=== PATIENT | female | born 1970 | race Caucasian/White ===

== ENCOUNTER 2021-06-17 13:36 | Outpatient (CLI) | payer BC, SELFPAY ==
--- NOTE | 2021-06-17 13:30 | ECG_ITS ---
Measurements Intervals [place] Rate: 65 P: 47 ME: 145 QRS: 25 QRSD: 97 T: 59 QT: 405 QTc: 422 Interpretive Statements SINUS RHYTHM BORDERLINE R WAVE PROGRESSION, ANTERIOR LEADS BASELINE ARTIFACT- I, II, III, AVR, AVL BORDERLINE ECG Electronically Signed On 06-17-2021 19:42:44 [employer] by Saad Richard D.O.
[2021-06-17 14:28] LABS: Anion Gap 7 mmol/L (8-16); Blood Urea Nitrogen 13 mg/dL (7-17); Calcium 9.5 mg/dL (8.4-10.2); Carbon Dioxide 32 mmol/L (22-30); Chloride 99 mmol/L (98-107); Estimated Glomerular Filt Rate > 60; Glucose 90 mg/dL (65-110); Sodium 138 mmol/L (137-145)
== END 2021-06-17 13:37 | disposition home or self-care (01) ==
LOC: ANHSURGERY 13:38
PROVIDERS: Anesthesiology; PCP Family Medicine Sports Medicine; Visit Provider Obstetrics & Gynecology
DX: Z01.818 Encounter for other preprocedural examination (principal); Z79.899 Other long term (current) drug therapy; I10 Essential (primary) hypertension
CPT/HCPCS: 36415; 80048; 93005

== ENCOUNTER 2021-06-18 01:22 | Day surgery (SDC) | payer BC, SELFPAY ==
--- NOTE | 2021-06-16 07:51 | PM.IMHP ---
H&P: HPI History of Present Illness Date/Time: 06/16/21 07:51 This 51-year-old female 3 para 3 is admitted for CO2 laser the and 2. 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 She is admitted for destruction of the remainder of this these lesions. Chief Complaint: High-grade RADHA Review of Systems Review of Systems: All systems reviewed & are unremarkable except as noted in HPI and below Meds Home Medications and Allergies Allergies Allergy/AdvReac Type Severity Reaction Status Date / Time No Known Allergies Allergy Unverified 06/15/15 18:14 Exam Const: General: no acute distress Eyes: General: appearance normal, both eyes and all related structures Neck: Neck: supple and no JVD Thyroid: thyroid normal Resp: Effort & Inspection: normal respiratory effort Auscultation: clear to auscultation bilaterally Cardio: Rate: regular rate Rhythm: regular rhythm GI: Inspection: non-distended GI Palp: Yes Soft to palpation, No Tenderness to palpation present (GI) and No Guarding due to palpation present (GI) Auscultation: normal bowel sounds : External Female Exam: normal appearance of the urethra and lesion (Left labia contains several areas of theVIN) Speculum Exam - Vagina: normal appearance of the vagina Speculum Exam - Cervix: Cervix absent Bimanual exam- vagina & uterus: uterus absent Bimanual Exam- Adnexa, other: no masses Skin: General skin exam: no rashes or lesions noted Extrem: General: normal to inspection and no edema Psych: Mental Status: mental status grossly normal Affect: normal affect Assessment and Plan Additional Plan Impression: High-grade RADHA Plan: CO2 laser of the lesions
[2021-06-16 10:48] VITALS: BMI 39.1
--- NOTE | 2021-06-16 11:10 | PC.NURSE ---
Report to the Outpatient Waiting Room, entrance under the green pavilion located off [facility], at time 11:30 on date 06/18/21. OR Time: 1:30. - You and your visitor will be asked a series of questions to screen for COVID 19 for your protection. - A mask is required within the hospital. - Only one visitor is allowed at this time. Patient visitors will be guided where to wait when not with patient. Preoperative COVID Testing Requirements: No COVID Test needed if: (proof is required; if not received patient will have Rapid Test prior to entry) - Patient has received COVID Vaccine at least 14 days prior to procedure date or - Patient has positive COVID test result within last 90 days of surgery date. COVID Test needed if above criteria is not met If not COVID vaccinated a COVID test must be conducted within 72 hours of surgery and patient is asked to isolate self from time of testing until procedure. You will go to the [facility] for your COVID testing. The [facility] site is located at the corner of [address] [facility]. You will only be called if COVID results are positive and your surgeon may reschedule your elective surgery date. Patients may have clear liquids (water, carbonated beverages, clear teas, apple juice) until 3 hours prior to surgery with a maximum of 20 ounces. - No food from midnight until time of surgery - Infants may have breast milk until 4 hours before surgery, infant formula 6 hours prior to surgery. - Children will be allowed to drink immediately following surgery. If applicable, please bring a bottle or sippy cup to assist with drinking. Juice, water, soda, and popsicles are readily available. For infants on formula, please bring formula the day of surgery. Pacifiers are allowed. Take the following medications with a SIP of water the morning of surgery: ALBUTEROL (AND BRING WITH YOU), LEXAPRO, WELLBUTRIN Medications to discontinue per physician: ASPIRIN AND MELOXICAM Date to take last dose: PER DR. SHAHAB LING Please no make-up, nail setswana, hairspray, perfume, deodorant, or body powder the day of surgery. No jewelry (including any body piercings) or valuables the day of surgery, leave them at home. Please take a shower or bath the night before, or the morning of, surgery with an antibacterial soap. Wear comfortable, loose fitting clothing. Children are encouraged to wear pajamas. - Jewelry must be removed prior to entering the operating room. Rings and piercings that are not removed may be cut off. - The hospital will not accept responsibility for valuables. - Please leave all valuables, including medications, at home the day of surgery. If you are going home after surgery, a licensed driver license agent must drive you home. - NO public transportation without another adult. - We recommend that an adult stay with you for 24 hours following discharge. - We also recommend that you do not drive, make important decision, drink alcoholic beverages, or take any drugs that were not prescribed by your health care provider for at least 24 hours after your discharge time. For Pediatric surgeries, we recommend two adults accompany the child home (only one inside the building at this time). Follow any additional instructions given to you from your surgeon. Telephone instructions given to JINA SANTIAGO and asked if any additional questions and then verbalized understanding. Patient advised to call surgeon office or pre surgery nurse liaison [phone] if any additional questions.
--- NOTE | 2021-06-18 07:02 | WPDHPUPDATE1 ---
History and Physical Update Update Date/Time: 06/18/21 07:02 History and Physical has been reviewed, including an updated exam of the patient. There are NO changes in the patient's condition. Risks, benefits, and alternatives have been discussed and questions answered. Patient agrees to proceed with procedure.
[2021-06-18 12:00] VITALS: BMI 41.4
[2021-06-18] MEDS: ACETAMINOPHEN 500 MG TABLET 1000 MG PO (12:07)
[2021-06-18] MEDS: LACTATED RINGERS 1,000 ML 30 ML IV CONT (12:15)
--- NOTE | 2021-06-18 12:15 | P.PNAN_ITS ---
Anes - Initial Pre Proc Eval Procedure: Operation Date: 06/18/21 13:30 Proposed Procedures p CO2 Laser of Vulva - Mehrdad Ramírez MD Date/Time: 06/18/21 12:15 Surgeon: Mehrdad Ramírez MD Pre Op Diagnosis: shayan GARCIA 2 Patient Data Age: 51 Gender: F Height: 1.7 m Weight: 120 kg Allergies Allergy/AdvReac Type Severity Reaction Status Date / Time No Known Allergies Allergy Verified 06/18/21 11:53 Home Medications Medication Instructions Recorded Confirmed Type albuterol sulfate 1 puff INHALATION QID PRN 06/16/21 06/18/21 History aspirin [Baby Aspirin] 81 mg PO DAILY 06/16/21 06/18/21 History bupropion HCl [Wellbutrin SR] 150 mg PO DAILY 06/16/21 06/18/21 History cetirizine [Zyrtec] 10 mg PO DAILY 06/16/21 06/18/21 History escitalopram oxalate [Lexapro] 10 mg PO DAILY 06/16/21 06/18/21 History hydrochlorothiazide 12.5 mg PO DAILY 06/16/21 06/18/21 History meloxicam 15 mg PO DAILY 06/16/21 06/18/21 History pantoprazole 40 mg PO QAM 06/16/21 06/18/21 History pravastatin 40 mg PO DAILY 06/16/21 06/18/21 History hydrocodone-acetaminophen 1 tablet PO Q4H PRN #20 tablet 06/18/21 Rx Patient hx anesthesia problems: none Family hx anesthesia problems: none Results Review: All pre-operative results and documents have been reviewed as part of the pre-operative evaluation. PMFSH Past Medical History Medical History Anxiety Depression Hyperlipidemia Hypertension Social History Social History Years smoked: 20 Smoking status: Current every day smoker Tobacco type: cigarettes Alcohol intake: current Drinks per week: 5 Substance use: current Substance use type: marijuana Other substance usage details: SMOKE Last use: 06/13/21 Living arrangements: with family Spiritual care concerns: No Anes - Eval Final PreProcedure Day of Procedure 06/18/21 12:15 Patient weight: morbidly obese Heart: regular rate and rhythm Lungs: decreased breath sounds Airway: Mallampati scale class II Neurological: alert and oriented Last oral intake: >/= 8 hours ASA classification: III Emergent: no Anesthetic plan: proceed Anesthesia type and monitoring: general GIVS and standard monitoring Results Review: All pre-operative results and documents have been reviewed as part of the pre-operative evaluation. Informed Consent: The patient's anesthetic plan and its attendant risks and abrahan efits were discussed with the patient/family/POA. Questions were solicited and answers provided to the satisfaction of the patient/family/POA.
[2021-06-18 12:18] VITALS: BP 131/87; PULSE 65; RESP 20; TEMP 36.9; O2SAT 97
--- NOTE | 2021-06-18 12:55 | W.PM.PROC2 ---
Procedure Note - Detailed Date of Procedure 06/18/21 Pre-op Diagnosis shayan CAMILA RADHA 2 Post-op Diagnosis same Procedure Performed CO2 laser of RADHA 2 Surgeon Mehrdad Ramírez MD Anesthesia MAC and local Indications This is a 51-year-old female with biopsy-proven RADHA 2 Findings Several small areas of PI and 2 which were highlighted by ascetic acid. Description of Procedure The patient was prepped and draped in the normal sterile fashion and placed in the dorsal lithotomy position. Under excellent IV sedation weighted speculum was placed posterior fornix vagina. The left labia majora and right labia majora had areas of the eye in 2 these were soaked with c/o ascetic acid and then using the laser set at 10 were burned and desiccated in completion. Blood loss was estimated at 1cc. Should be noted that [id number] of 1% xylocaine anesthesia was placed under each area Estimated Blood Loss 1 Drains No Packing No Pathology none sent Complications No immediate complications Condition stable Disposition PACU
[2021-06-18 13:00] VITALS: BP 99/60; PULSE 76; RESP 18; O2SAT 98
[2021-06-18 13:30] VITALS: BP 121/74; PULSE 69; RESP 18; O2SAT 92
[2021-06-18] MEDS: oxyCODONE HCL (*CRX) 5 MG TAB IR PO (13:46)
[2021-06-18 14:00] VITALS: BP 132/78; PULSE 64; RESP 18
== END 2021-06-18 14:24 | disposition home or self-care (01) ==
PROVIDERS: PCP Family Medicine Sports Medicine; Visit Provider Obstetrics & Gynecology
PROC: (CPT 56515; principal; 2021-06-18 13:30)
DX: N90.1 Moderate vulvar dysplasia (principal); F41.8 Other specified anxiety disorders; E78.5 Hyperlipidemia, unspecified; I10 Essential (primary) hypertension; F17.210 Nicotine dependence, cigarettes, uncomplicated; F12.90 Cannabis use, unspecified, uncomplicated; Z79.82 Long term (current) use of aspirin; Z79.51 Long term (current) use of inhaled steroids; E66.01 Morbid (severe) obesity due to excess calories; Z68.41 Body mass index [BMI] 40.0-44.9, adult
CPT/HCPCS: 56515; A9270; J1100; J2250; J2270; J2405; J2704; J3010; J7120

== ENCOUNTER 2023-10-15 18:01 | Emergency (ER) | payer BC, SELFPAY ==
[2023-10-15 18:12] VITALS: BP 114/79; PULSE 78; RESP 20; TEMP 36.6; O2SAT 97
--- NOTE | 2023-10-15 18:48 | ED.URI ---
HPI - URI/Sore Throat General Chief Complaint: Upper Respiratory Infection Stated Complaint: cough/chest congestion Time Seen by Provider: 10/15/23 18:49 Source: patient, RN notes reviewed and old records reviewed Mode of arrival: ambulatory Limitations: no limitations History of Present Illness HPI Narrative: 53 year old female who presents to express care with complaints of cough,chest congestion, nasal congestion and drainage for 1 week duration. Patient reports that she was seen yesterday at [facility] urgent care and given antibiotic, Inhaler and Tessalon Perles but does not feel she is better is requesting steroids.Patient reports that she was tested for flu and COVID which were negative. Patient reports that cough is bothersome and has been unable to rest. MD elicited complaint: cough, rhinorrhea and nasal congestion Pertinent past history: other (tobacco use,bronchitis) Onset (ago): week(s) (1) Description of mucous: clear Able to tolerate fluids by mouth: Yes Exacerbating factors: exertion and supine positioning Treatments prior to arrival: antibiotics and other (inhaler,Tessalon Perles) Related Data Home Medications Medication Instructions Recorded Confirmed albuterol sulfate 90 mcg/actuation 1 puff inhalation QID PRN Allergy 06/16/21 06/18/21 aerosol inhaler Symptoms aspirin 81 mg chewable tablet 81 mg PO DAILY 06/16/21 06/18/21 bupropion HCl 150 mg tablet,12 hr 150 mg PO DAILY 06/16/21 06/18/21 sustained-release (Wellbutrin SR) cetirizine 10 mg tablet (Zyrtec) 10 mg PO DAILY 06/16/21 06/18/21 escitalopram oxalate 10 mg tablet 10 mg PO DAILY 06/16/21 06/18/21 (Lexapro) hydrochlorothiazide 12.5 mg tablet 12.5 mg PO DAILY 06/16/21 06/18/21 meloxicam 15 mg tablet 15 mg PO DAILY 06/16/21 06/18/21 pantoprazole 40 mg tablet,delayed 40 mg PO QAM 06/16/21 06/18/21 release pravastatin 40 mg tablet 40 mg PO DAILY 06/16/21 06/18/21 Allergies Allergy/AdvReac Type Severity Reaction Status Date / Time No Known Allergies Allergy Verified 06/18/21 11:53 Review of Systems Review of Systems: CONSTITUTIONAL: Denies malaise, chills, sweats, or fever. EYES: Denies visual changes, redness, or discharge. ENT: Reports rhinorrhea, congestion, sinus pain,no otalgia and no sore throat. CARDIOVASCULAR: Denies chest pain, palpitations, or edema. RESPIRATORY: Reports cough.? Denies dyspnea. GASTROINTESTINAL: Denies abdominal pain, nausea, vomiting, diarrhea SKIN: Denies rash or itching. MUSCULOSKELETAL: Denies myalgia. NEUROLOGIC: Denies headache. All systems reviewed & are unremarkable except as noted in HPI and below PMFSH Past Medical History Medical History (Updated 10/16/23 @ 20:30 by Nolvia Quintanilla NP) Anxiety Depression GERD (gastroesophageal reflux disease) Hyperlipidemia Hypertension Surgical History Surgical History (Updated 10/16/23 @ 20:30 by Nolvia Quintanilla NP) H/O: hysterectomy History of arthroscopy of right knee History of rhinoplasty History of tonsillectomy History of ureter repair age 5 Previous section S/P bilateral foot surgery hammertoe repair Social History Social History Years smoked: 20 Smoking status: Current every day smoker Tobacco type: cigarettes Alcohol intake: current Drinks per week: 5 Substance use: current Substance use type: marijuana Other substance usage details: SMOKE Last use: 06/13/21 Living arrangements: with family Spiritual care concerns: No Comments At time of signature, agree with nursing past medical, surgical, social and family history. There is no relevant family history pertinent to the presenting complaint Exam Narrative: GENERAL: Well-appearing, well-nourished, and in no acute distress. HEAD: Normocephalic EYES: PERRLA, conjunctivae clear ENT: Nares clear, turbinates edematous and erythematous, clear discharge. Mucous membranes
== END 2023-10-15 19:18 | disposition home or self-care (01) ==
PROVIDERS: Emergency Provider Registered Nurse; PCP Family Medicine
DX: J06.9 Acute upper respiratory infection, unspecified (principal); F17.210 Nicotine dependence, cigarettes, uncomplicated; K21.9 Gastro-esophageal reflux disease without esophagitis; E78.5 Hyperlipidemia, unspecified; I10 Essential (primary) hypertension; F41.9 Anxiety disorder, unspecified; F32.A Depression, unspecified; Z79.82 Long term (current) use of aspirin
CPT/HCPCS: 99213; G0463